=== PATIENT | female | born 1980 | race African-American/Black ===

== ENCOUNTER 2022-06-16 21:21 | Emergency (ER) | payer MEDICAID ==
[~2022-06-16] VITALS: Ht 160 cm; Wt 78.0 kg
[2022-06-16 23:44] LABS: BASOPHILS % 0.3 % (0.0-2.0); EOSINOPHILS % 0.2 % (0.0-5.0); HEMATOCRIT. 32.3 % (36.0-48.0); HEMOGLOBIN. 10.3 g/dL (12.0-16.0); LYMPHOCYTES % 19.8 % (20.0-50.0); MEAN CORPUSCULAR HEMOGLOBIN 23.7 pg (28.0-32.0); MEAN CORPUSCULAR VOLUME 74.5 fL (81.0-99.0); MEAN PLATELET VOLUME 8.5 fl (7.4-10.4); MONOCYTES % 9.6 % (2.0-8.0); NEUTROPHILS % 70.1 % (40.0-76.0); PLATELET 287 x1000/uL (130-400); RED BLOOD CELL COUNT 4.33 mill/uL (4.2-5.4); RED CELL DISTRIBUTION WIDTH 16.5 % (11.6-14.6)
[2022-06-17 00:03] LABS: HCG SCREEN NEGATIVE
[2022-06-17 00:09] LABS: CHLORIDE 103 mEq/L (98-107)
[2022-06-17 02:30] VITALS: BP 146/87
== END 2022-06-17 02:30 | disposition home or self-care (01) ==
LOC: ER 21:21
DX: R55 Syncope and collapse (principal); K80.20 Calculus of gallbladder without cholecystitis without obstruction
CPT/HCPCS: 36415; 80053; 84484; 84703; 85025; 93005; 99284; Z7610